=== PATIENT | female | born 1960 | race African-American/Black ===

== ENCOUNTER 2016-08-31 16:26 | Emergency (ER) | payer SELFPAY ==
[~2016-08-31 16:26] MED LIST: BACT800T5 PO; IBUP100S30 PO; MACR100C PO; MOBI15TA PO; PRED10PA PO; VENTAER INH; ZOFR4TAB3 PO
[2016-08-31 16:27] VITALS: BP 150/82; PULSE 82; RESP 18; TEMP 98.8; O2SAT 97
--- NOTE | 2016-08-31 16:35 | PD ---
Physical Exam Date Seen by Provider: August 31, 2016 Time Seen by Provider: 16:33 Narrative 56 year old female presents to the emergency department stating that she is concerned she has C-Diff because her sister was just diagnosed with C-Diff. She denies any diarrhea. She has no complaints today. Vital signs reviewed. Patient awaiting bed placement. Data Data Last Documented VS Vital Signs Date Time Temp Pulse Resp B/P Pulse Ox O2 Delivery O2 Flow Rate FiO2 08/31/16 16:27 98.8 82 18 150/82 97 MDM Supervised Visit with KENNY: Heather Johnson August 31, 2016 16:35
--- NOTE | 2016-08-31 16:45 | PD ---
HPI Chief Complaint: Medical Clearance Time Seen by Provider: 16:42 Travel History International Travel<30 days: No Contact w/Intl Traveler<30days: No Traveled to known affect area: No History of Present Illness HPI 56-year-old female presents to the emergency department with concern that her sister was diagnosed with C. difficile yesterday and that she has been contaminated and needs to be treated also. She denies fever, vomiting, diarrhea , abdominal pain. She has no other medical complaints. No known allergies. No other modifying factors or associated signs and symptoms. History Past Medical Histgory Menopausal: No Social History Alcohol Use: No Tobacco Use: Yes Allergies-Medications (Allergen,Severity, Reaction): Coded Allergies: No Known Allergies (Verified , 08/31/16) Reported Meds & Prescriptions Reported Meds & Active Scripts Active Sterapred Ds 12 Day Pack (Prednisone) 10 Mg Jose Daniel 10 Mg PO DIRECTED USE DIRECTED Bactrim DS (Sulfamethoxazole-Trimethoprim DS) 1 Tab Tab 1 Tab PO BID Ventolin Hfa (Albuterol Sulfate) 18 Gm Aero 2 Puff INH Q4 * SHAKE WELL BEFORE USE * Zofran ODT (Ondansetron HCl) 4 Mg Tab 4 Mg PO Q6HR PRN Macrobid (Nitrofurantoin Macrocrystals) 100 Mg Cap 100 Mg PO BID 10 Days Reported Advil (Ibuprofen) 100 Mg/5 Ml Lilo 200 Mg PO DAILY 2 tabs as needed once a day Mobic (Meloxicam) 15 Mg Tab 15 Mg PO DAILY Review of Systems Except as stated in HPI: all other systems reviewed are Neg Physical Exam Narrative GENERAL: Well-nourished, well-developed female patient, in no acute distress SKIN: Warm and dry. HEAD: Atraumatic. Normocephalic. EYES: Pupils equal and round. No scleral icterus. No injection or drainage. ENT: Mucosa pink and moist. Airway patent. NECK: Trachea midline. CARDIOVASCULAR: Regular rate. RESPIRATORY: No accessory muscle use. GASTROINTESTINAL: Rounded. MUSCULOSKELETAL: No obvious deformities. No clubbing. No cyanosis. No edema. NEUROLOGICAL: Awake and alert. Oriented 3. No obvious cranial nerve deficits. Motor grossly within normal limits. Normal speech. PSYCHIATRIC: Appropriate mood and affect; insight and judgment normal. Data Data Last Documented VS Vital Signs Date Time Temp Pulse Resp B/P Pulse Ox O2 Delivery O2 Flow Rate FiO2 5/10/17 16:27 98.8 82 18 150/82 97 MDM Medical Screen Exam Complete: Yes Emergency Medical Condition: No Differential Diagnosis Medical clearance, diarrhea, C. difficile, abdominal pain Narrative Course 56-year-old female with concern of being exposed to C. difficile and needing treatment. She is asymptomatic. Vital signs are stable and the patient is stable for outpatient follow-up and treatment. The patient has no urgent or emergent medical complaints. There is no emergent or urgent medical need at this time. I instructed the patient to follow up with their primary care provider. A medical screening exam was performed: At the time of evaluation the presenting medical condition was determined not to be of an emergent nature. The patient was given the option of receiving additional care, but declined. Patient was given options for additional community resources from which to obtain care. The Patient Has Been advised to seek medical attention for their presenting complaint. The patient has been advised to return to the ER at any time if an emergent condition develops. Primary Impression: Encounter for medical screening examination Condition: Stable Shannon Fuentes [facility] August 31, 2016 16:45
== END 2016-08-31 17:01 | disposition left against medical advice (07) ==
LOC: NEPK 16:26
DX: Z03.89 Encounter for observation for other suspected diseases and conditions ruled out (principal)
CPT/HCPCS: 99281